=== PATIENT | female | born 1930 | race Caucasian/White ===

== ENCOUNTER 2019-03-29 14:21 | Emergency (ER) | payer MEDICARE ==
[~2019-03-29] VITALS: Ht 157.5 cm; Wt 45.4 kg
[~2019-03-29 14:21] MED LIST: ACET500; ACET500 PO; ALBU90OI6 INH; AMOX875 PO; ASCO500; ASCO500 PO; ASPI81CH PO; ASPI81EC PO; B Complete1 EACH; B Complete1 EACH PO; BEANO PO; BENZ100A PO; CALGLU500 PO; CARV6.25 PO; CENTRUM SILVER1 EAC2 PO; CHOL10002; CHOL10002 PO; DONE5 PO; FLUSAL1005 IH; HYDACE5 PO; MAGOXI400 PO; MECL12.5 PO; MULVITMINF PO; NITR100CA PO; OLME20 PO; OLME20-12. PO; OLME5TAB PO; OMEP10ER PO; OMEP20ER; OMEP20ER PO; ONDA4ODT MM; OSEL75CA PO; RXHYDACE PO; SIMV40 PO; VITAMIN D32000 UNIT PO; WARF5 PO; XARELTO15 MG PO; XARELTO20 MG PO
[2019-03-29] MEDS ORDERED: ENTRESTO 24 MG1 EACH PO (14:36)
[2019-03-29] MEDS ORDERED: Flovent Diskus50 MCG (14:39)
[2019-03-29] MEDS ORDERED: DIPATRL (14:40)
[2019-03-29] MEDS ORDERED: Mirtazapine7.5 MG PO (14:40)
== END 2019-03-29 16:14 | disposition home or self-care (01) ==
LOC: ER 14:21
DX: R53.1 Weakness (principal); I25.10 Atherosclerotic heart disease of native coronary artery without angina pectoris; J44.9 Chronic obstructive pulmonary disease, unspecified; I10 Essential (primary) hypertension; I25.2 Old myocardial infarction; E78.5 Hyperlipidemia, unspecified; Z85.51 Personal history of malignant neoplasm of bladder; Z85.850 Personal history of malignant neoplasm of thyroid; Z79.899 Other long term (current) drug therapy; Z79.01 Long term (current) use of anticoagulants; W18.39XA Other fall on same level, initial encounter
CPT/HCPCS: 70450; 93005; 93010; 99285-25